=== PATIENT | female | born 2000 | race Caucasian/White ===

== ENCOUNTER 2023-10-30 11:20 | Emergency (ER) | payer OTHER, SELFPAY ==
--- NOTE | 2023-10-30 11:46 | ED.GENMED ---
History of Present Illness
General
Chief Complaint: Fainting/Passed Out
Source: patient and family
Time Seen by Provider: 10/30/23 11:26
History of Present Illness
History of Present Illness:
22yoF with no significant past medical history presenting with her mother for evaluation after a syncopal episode about 45 minutes ago. Patient works at a daycare and was outside standing when she started to experience a headache. This was followed
by black spots in her vision and dizziness. She sat herself against the building and had a witnessed syncopal episode. She is unsure how long the episode lasted for. She denies any head strike or fall to the ground. There was no bowel/bladder
incontinence, tongue biting, or seizure-like activity during the episode. She continues to have a headache which she rates as an 8/10 in severity. She denies any chest pain, shortness of breath, palpitations. She was seen by her PCP yesterday and
had a BP of 88/53 during her visit.
Phy Exam
General Physical Exam
General Presentation: well appearing and no apparent distress
General age: appears stated age
General Skin: warm and dry
General Habitus: normal
General Mental: alert
Eye Exam
Eye Exam: PERRL
Cardiovascular Exam
Cardiovascular Exam: regular rate/rhythm, no edema and no murmur
Pulmonary Exam
Pulmonary Exam: lungs clear, no respiratory distress, no crackles and no wheezing
Neurological Exam
Neurological Exam: alert and no motor deficits
[place] Coma Scale
Eye Opening: Spontaneous
Verbal Response: Oriented
Motor Response: Obeys Commands
GCS Total Score: 15
Skin Exam
Skin Exam: normal color and warm/dry
Psychiatric Exam
Psychiatric Exam: normal mood/affect
Course
Orders/Labs/Results
Orders:
Orders
10/30/23 11:45
Electrocardiogram (*1) Urgent
Reason for Study: Vertigo / Dizzy
CT Head W/o Iv Contrast Urgent
Comment:
Reason For Exam: Acute headache, LOC
EKG- Treatment ONCE
0.9% Sodium Chloride 1000 ml [Nss] 1,000 ml IV BOLUS
Test Result ONCE
10/30/23 12:30
Complete Blood Count/With Diff Urgent
Comprehensive Metabolic Panel Urgent
HCG, Serum Qualitative Screen Urgent
10/30/23 14:09
Acetaminophen [Tylenol] 650 mg PO NOW STA
Abnormal Lab Results
10/30/23
12:30
Hct 36.1 L %
(37.0-47.0)
MCV 77.0 L fL
(81.0-99.0)
Chloride 108 H mmol/L
(98-107)
10/30/23 12:30
10/30/23 12:30
Vital Signs
Initial and Last Documented VS:
Initial Vital Signs
Temp Pulse Resp Pulse Ox
98.5 F 95 16 100
10/30/23 11:22 10/30/23 11:22 10/30/23 11:22 10/30/23 11:22
Last Documented Vital Signs
Temp Pulse Resp BP Pulse Ox
98.5 F 65 16 110/66 98
10/30/23 11:22 10/30/23 15:11 10/30/23 15:11 10/30/23 15:11 10/30/23 15:11
MDM/Problems Addressed
Differential Diagnosis Includes:
22yoF here after a syncopal episode. Standing outside during episode. Preceded by a headache, black spots in vision, and dizziness. No seizure like activity or incontinence. She continues to have a headache. She is afebrile and hemodynamically
stable. She is well appearing in no distress. Exam is reassuring. Differential diagnosis includes but is not limited to: vasovagal event, orthostatic hypotension, arrhythmia, subarachnoid hemorrhage
Initial ED plan: Check CBC, CMP, HCG, EKG, and CT head. IV fluid bolus.
*EKG
Interpreted by ED Provider?: Yes
EKG Intrepretation Date: 10/30/23
Heart Rate: 65
Rate: normal
Rhythm: sinus arrhythmia
[place]: normal axis
Interval: normal interval
QRS Pattern: normal QRS
Ischemia: no ischemia
*Critical Care Note
Total Time (30-74mins, 75-104mins- exclusive of procedures): Not Applicable
Update Note
Update Note:
Labs overall unremarkable including normal hemoglobin, electrolytes, glucose. HCG negative. EKG shows NSR without ectopy or ischemic changes. CT head is negative for acute intracranial findings. There is opacification of the R frontal and anterior
ethmoid air cells, correlate for possible acute sinusitis. She does report R frontal sinus pressure and nasal congestion x 2 weeks. Will cover with Augmentin. Vitals remain stable. No indication for admission. Advised close f/u with PCP and ED
return precautions discussed. She expressed understanding and is agreeable to plan. Patient discharged in stable condition.
ED Attending Note
-
Portions of this chart may have been created with voice recognition software.� Occasional wrong word or��sound alike� substitutions may have occurred due to the inherent limitations of voice recognition software.
Discharge Plan
Departure
Patient Disposition: Home (Routine Discharge)
Date of Disposition: 10/30/23
Time of Disposition: 14:51
Patient with high blood pressure during this ER visit?: No
Discharge Problem:
Syncope, Sinusitis
Instructions: Syncope (Fainting) (DC)
Prescriptions:
New
amoxicillin-pot clavulanate 875-125 mg tablet
1 tab PO BID Qty: 14 0RF
Referrals:
Leti López PA [Family Provider] -
Activity Restrictions/Additional Instructions:
Take antibiotics as prescribed. Drink plenty of fluids and hydrate.
Please follow-up with your family doctor. Return to the ER with any new or worsening symptoms.
Interventions
Interventions:
*Risk Screen - Suicide Last Done: 10/30/23 11:25
*General Assessment Last Done: 10/30/23 11:25
*Neglect/Abuse Screening Last Done: 10/30/23 11:25
ED- Fall Risk Assessment Last Done: 10/30/23 11:58
*ED COVID-19 Vaccine History Last Done: 10/30/23 11:58
*Nursing Disposition Last Done: 10/30/23 15:14
ED- Cardiac Assessment Last Done: 10/30/23 11:58
ED- Neurological Assessment Last Done: 10/30/23 11:58
Discharge Date and Time
Discharge Date/Time: 10/30/23 15:14
Print Language: LAO
[2023-10-30 11:58] VITALS: BMI 22.3
[2023-10-30] MEDS: NSS 1000 IV (12:30)
[2023-10-30 12:40] LABS: % Basophils 0.6 % (0-2); % Eosinophils 1.1 % (0-6); % Immature Granulocytes 0.2 % (0-0.5); % Lymphocytes 34.8 % (20.5-51.1); % Monocytes 7.4 % (1.7-9.3); % Neutrophils 55.9 % (42.2-75.2); Absolute Eosinophils 0.1 10^3/uL (0-0.7); Absolute Lymphocytes 1.9 10^3/uL (1.2-3.4); Absolute Monocytes 0.4 10^3/uL (0.1-0.6); Hematocrit 36.1 % (37.0-47.0); Hemoglobin 12.7 g/dL (12.0-16.0); Mean Corp Hgb Conc. 35.2 g/dL (33.0-37.0); Mean Corpuscular Hgb 27.1 pg (27.0-31.0); Mean Platelet Volume 9.4 fL (7.4-10.4); Nucleated Red Blood Cells % 0 %; Platelet Count 238 10^3/uL (130-400); Red Blood Cell Count 4.69 10^6/uL (4.20-5.40); Red Cell Dist. Width 12.9 % (11.5-14.5); White Blood Cell Count 5.4 10^3/uL (4.8-10.8)
[2023-10-30 12:59] LABS: HCG, Serum Qualitative Screen Negative
[2023-10-30 13:04] LABS: ALT (SGPT) 21 U/L (0-35); AST (SGOT) 27 U/L (14-36); Albumin 4.2 g/dl (3.5-5.0); Alkaline Phosphatase 38 U/L (38-126); Blood Urea Nitrogen 15 mg/dl (7-17); Calcium 9.4 mg/dl (8.4-10.2); Carbon Dioxide 26 mmol/L (22-30); Chloride 108 mmol/L (98-107); Estimated Creatinine Clearance 108 ml/min; Glucose 97 mg/dl (70-99); Potassium 4.4 mmol/L (3.5-5.1); Sodium 138 mmol/L (135-145); Total Bilirubin 0.3 mg/dl (0.2-1.3); Total Protein 6.6 g/dl (6.3-8.2); eGFR > 60.00
[2023-10-30 13:20] VITALS: BP 109/65
[2023-10-30] MEDS: TYLENOL 650 MG PO (14:16)
[2023-10-30 15:11] VITALS: BP 110/66
== END 2023-10-30 15:14 | disposition home or self-care (01) ==
LOC: EMR 11:20
PROVIDERS: Physician Assistant; EMERGENCY PHYSICIAN Emergency Medicine; FAMILY PHYSICIAN Physician Assistant
DX: R55 Syncope and collapse (principal); J32.9 Chronic sinusitis, unspecified
CPT/HCPCS: 99284; 96360; 70450; 80053; 84703; 85025; 93005

== ENCOUNTER → 2024-03-25 08:35 | Outpatient (REF) | payer OTHER, SELFPAY | LOC: HWRAD 08:35 | PROVIDERS: ATTENDING PHYSICIAN Physician Assistant | DX: R30.0 Dysuria (principal); R10.2 Pelvic and perineal pain; R31.29 Other microscopic hematuria; N93.9 Abnormal uterine and vaginal bleeding, unspecified | CPT/HCPCS: 76770; 76830; 76856 ==

== ENCOUNTER → 2024-10-06 17:54 | Outpatient (REF) | payer OTHER, SELFPAY | LOC: RAD 17:54 | PROVIDERS: ATTENDING PHYSICIAN Family Medicine; FAMILY PHYSICIAN Physician Assistant | DX: M79.672 Pain in left foot (principal); T14.90XA Injury, unspecified, initial encounter | CPT/HCPCS: 73590; 73610; 73630 ==